=== PATIENT | female | born 1940 | race Caucasian/White ===

== ENCOUNTER 2019-12-25 09:55 | Emergency (ER) | payer MEDICARE, OTHER ==
--- NOTE | 2019-12-25 10:19 | EDM.PDOC ---
ED HPI GENERAL MEDICAL PROBLEM - General Stated Complaint: FEVER WEAKNESS Time Seen by Provider: 12/25/19 12:00 Source of Information: Reports: Half-Way Records History Limitations: Reports: Other (dementia) - History of Present Illness INITIAL COMMENTS - FREE TEXT/NARRATIVE: pt is a resident at an assisted living, has Hx of dementia, was brought here with concerns for fevre and c/o weakness, also to be tested for Covid, as she may have been exposed to it at her residence. pt has dementia she is alert here and appear comfortable but unable to provide any pertinent Hx information about her past medical hx or present illness. pt however dose folow simple comands and moves all extremities. pt info were obtained from staff and available medical records. - Related Data Allergies Allergy/AdvReac Type Severity Reaction Status Date / Time codeine Allergy Cannot Verified 12/25/19 13:10 Remember Sulfa (Sulfonamide Allergy Cannot Verified 12/25/19 13:10 Antibiotics) Remember Home Meds: Home Meds Acetaminophen [Tylenol] 650 mg PO Q4H PRN 12/25/19 [History] Aspirin [Halfprin] 81 mg PO DAILY 12/25/19 [History] Bisacodyl [Gentle Laxative] 10 mg RECTAL Q3D PRN 12/25/19 [History] Calcium Carbonate/Vitamin D3 [Calcium 500-Vit D3 200 Caplet] 1 tab PO BID 12/25/19 [History] Cholecalciferol (Vitamin D3) [Vitamin D3] 2,000 unit PO DAILY 12/25/19 [History] Donepezil HCl [Aricept] 10 mg PO DAILY 12/25/19 [History] Gabapentin [Neurontin] 900 mg PO TID 12/25/19 [History] Levothyroxine 75 mcg PO DAILY 12/25/19 [History] Loperamide [Imodium] 2 mg PO ASDIRECTED PRN 12/25/19 [History] Mag Hydrox/Aluminum Hyd/Simeth [Mylanta Maximum Strength Liq] 10 ml PO QID PRN 12/25/19 [History] Magnesium Hydroxide [Milk of Magnesia] 30 ml PO DAILY PRN 12/25/19 [History] Memantine HCl [Namenda] 5 mg PO DAILY 12/25/19 [History] Multivitamin 1 tab PO DAILY 12/25/19 [History] atorvaSTATin Calcium [Lipitor] 40 mg PO BEDTIME 12/25/19 [History] atorvaSTATin [Lipitor] 20 mg PO BEDTIME 12/25/19 [History] guaiFENesin [Robitussin] 10 ml PO Q4H PRN 12/25/19 [History] metFORMIN HCl [Metformin ER Gastric] 500 mg PO BIDMEALS 12/25/19 [History] ED ROS GENERAL - Review of Systems Review Of Systems: Unable To Obtain (dementia) Reason Not Obtained: dementia ED EXAM, GENERAL - Physical Exam Exam: See Below Exam Limited By: No Limitations General Appearance: Alert, No Apparent Distress, Other (pt is afebrile here and appear comfortable ) Eye Exam: Bilateral Eye: Normal Inspection Nose: Normal Inspection Throat/Mouth: Normal Inspection, Normal Oropharynx Head: Atraumatic, Normocephalic Neck: Normal Inspection, Supple Respiratory/Chest: No Respiratory Distress, Lungs Clear, Normal Breath Sounds Cardiovascular: Normal Peripheral Pulses, Regular Rate, Rhythm GI/Abdominal: Normal Bowel Sounds, Soft, Non-Tender Extremities: Normal Inspection, Normal Range of Motion Neurological: Alert, CN II-XII Intact. No: Abnormal Reflexes, Sensory/Motor Deficit Skin Exam: Warm Course - Vital Signs Text/Narrative:: labs results were reviewed. pt tested positive for Covid, pt is resting comfortable here, no signs of respiratory evolvement or systemic instability , vitals are wnl/stable with repeat check. at pt is medically stable for discharge back to her assisted living where she will be quarantined along with 5 other residents who tested as well positive for this infection. supportive care was otherwise recommended. Last Recorded V/S: Last Vital Signs Temp 36.8 C 12/25/19 09:55 Pulse 68 12/25/19 09:55 Resp 16 12/25/19 09:55 BP 144/68 H 12/25/19 09:55 Pulse Ox 98 12/25/19 09:55 - Orders/Labs/Meds Orders: Active Orders 24 hr Category Date Time Status Isolation [COMM] Routine Oth 12/25/19 10:43 Ordered Labs: Laboratory Tests 12/25/19 12/25/19 12/25/19 Range/Units 11:00 11:00 12:15 WBC 5.1 (4.5-12.0) X10-3/uL RBC 4.39 (3.23-5.20) x10(6)uL Hgb 12.3 (11.5-15.5) g/dL Hct 37.4 (30.0-51.3) % MCV 85.0 (80-96) fL MCH 28.1 (27.7-33.6) pg MCHC 33.0 (32.2-35.4) g/dL RDW 14.3 (11.5-15.5) % Plt Count 111 L (125-369) X10(3)uL Sodium 139 (135-145) mmol/L Potassium 3.8 (3.5-5.3) mmol/L Chloride 102 (100-110) mmol/L Carbon Dioxide 34 H (21-32) mmol/L BUN 19 H (7-18) mg/dL Creatinine 1.0 (0.55-1.02) mg/dL Est Cr Clr Drug Dosing TNP Estimated GFR (MDRD) 54 L (>60) BUN/Creatinine Ratio 19.0 (9-20) Glucose 141 H (80-116) mg/dL Calcium 8.5 L (8.6-10.2) mg/dL Total Bilirubin 0.5 (0.1-1.3) mg/dL AST 19 (5-25) IU/L ALT 22 (12-36) U/L Alkaline Phosphatase 69 (56-112) IU/L Total Protein 5.9 L (6.0-8.0) g/dL Albumin 2.9 L (3.2-4.6) g/dL Globulin 3.0 g/dL Albumin/Globulin Ratio 1.0 Urine Color Yellow (YELLOW) Urine Appearance Clear (CLEAR) Urine pH 7.0 H (5.0-6.5) Ur Specific Spray 1.010 (1.010-1.025) Urine Protein Negative (NEGATIVE) mg/dL Urine Glucose (UA) Normal (NORMAL) mg/dL Urine Ketones Negative (NEGATIVE) mg/dL Urine Occult Blood Negative (NEGATIVE) Urine Nitrite Negative (NEGATIVE) Urine Bilirubin Negative (NEGATIVE) Urine Urobilinogen Normal (NEGATIVE) mg/dL Ur Leukocyte Esterase Negative (NEGATIVE) Urine RBC 0-5 (0-5) Urine WBC 0-5 (0-5) Ur Squamous Epith Cells Rare (NS,R,O) Urine Bacteria Rare H (NS) SARS Virus RNA (PCR) (NEGATIVE) 12/25/19 Range/Units 13:30 WBC (4.5-12.0) X10-3/uL RBC (3.23-5.20) x10(6)uL Hgb (11.5-15.5) g/dL Hct (30.0-51.3) % MCV (80-96) fL MCH (27.7-33.6) pg MCHC (32.2-35.4) g/dL RDW (11.5-15.5) % Plt Count (125-369) X10(3)uL Sodium (135-145) mmol/L Potassium (3.5-5.3) mmol/L Chloride (100-110) mmol/L Carbon Dioxide (21-32) mmol/L BUN (7-18) mg/dL Creatinine (0.55-1.02) mg/dL Est Cr Clr Drug Dosing Estimated GFR (MDRD) (>60) BUN/Creatinine Ratio (9-20) Glucose (80-116) mg/dL Calcium (8.6-10.2) mg/dL Total Bilirubin (0.1-1.3) mg/dL AST (5-25) IU/L ALT (12-36) U/L Alkaline Phosphatase (56-112) IU/L Total Protein (6.0-8.0) g/dL Albumin (3.2-4.6) g/dL Globulin g/dL Albumin/Globulin Ratio Urine Color (YELLOW) Urine Appearance (CLEAR) Urine pH (5.0-6.5) Ur Specific Spray (1.010-1.025) Urine Protein (NEGATIVE) mg/dL Urine Glucose (UA) (NORMAL) mg/dL Urine Ketones (NEGATIVE) mg/dL Urine Occult Blood (NEGATIVE) Urine Nitrite (NEGATIVE) Urine Bilirubin (NEGATIVE) Urine Urobilinogen (NEGATIVE) mg/dL Ur Leukocyte Esterase (NEGATIVE) Urine RBC (0-5) Urine WBC (0-5) Ur Squamous Epith Cells (NS,R,O) Urine Bacteria (NS) SARS Virus RNA (PCR) Positive H (NEGATIVE) Departure - Departure Time of Disposition: 14:54 Disposition: Home, Self-Care 01 Clinical Impression: COVID-19 - Discharge Information Sepsis Event Note (ED) - Focused Exam Vital Signs: Vital Signs Temp Pulse Resp BP Pulse Ox 12/25/19 09:55 36.8 C 68 16 144/68 H 98 - My Orders Last 24 Hours: My Active Orders 12/25/19 10:43 Isolation [COMM] Routine - Assessment/Plan Last 24 Hours: My Active Orders 12/25/19 10:43 Isolation [COMM] Routine
[2019-12-25] MEDS ORDERED: Sodium Chloride 0.9% 10 ML Syringe FLUSH PRN (16:45)
== END 2019-12-25 17:35 | disposition home or self-care (01) ==
LOC: FB.ED 09:55
DX: U07.1 COVID-19 (principal); F03.90 Unspecified dementia, unspecified severity, without behavioral disturbance, psychotic disturbance, mood disturbance, and anxiety; Z79.82 Long term (current) use of aspirin; Z79.899 Other long term (current) drug therapy; Z79.84 Long term (current) use of oral hypoglycemic drugs; Z88.5 Allergy status to narcotic agent; Z88.2 Allergy status to sulfonamides
CPT/HCPCS: 36415; 80053; 81001; 85027; 87804; 99284; U0002; 99285

== ENCOUNTER 2021-06-28 13:24 | Emergency (ER) | payer MEDICARE, OTHER ==
[2021-06-28] MEDS ORDERED: Lidocaine 2% Viscous Solution 15 ML UD PO ONE (13:31)
== END 2021-06-28 14:10 | disposition home or self-care (01) ==
LOC: FB.ED 13:24
DX: S09.93XA Unspecified injury of face, initial encounter (principal); E78.00 Pure hypercholesterolemia, unspecified; I10 Essential (primary) hypertension; E11.9 Type 2 diabetes mellitus without complications; E20.9 Hypoparathyroidism, unspecified; Z88.5 Allergy status to narcotic agent; Z88.2 Allergy status to sulfonamides; Z79.82 Long term (current) use of aspirin; Z79.84 Long term (current) use of oral hypoglycemic drugs; Z79.899 Other long term (current) drug therapy; W22.8XXA Striking against or struck by other objects, initial encounter
CPT/HCPCS: 99283; A9270-GY

== ENCOUNTER → 2022-02-22 | Emergency (ER) | payer MEDICARE, OTHER ==
[2022-02-23 14:17] LABS: ESTIMATED GFR 57 mL/min (>60)
[2022-02-23 14:50] LABS: CORONAVIRUS COVID-19 NAA NEGATIVE (NEGATIVE)
[2022-02-23 14:51] LABS: STREP A BY PCR NOT DETECTED (NOT DETECT)
== END ==
LOC: FB.ED 09:38 → FB.EMPHLTH 09:38
DX: R13.10 Dysphagia, unspecified (principal); R77.0 Abnormality of albumin; R09.89 Other specified symptoms and signs involving the circulatory and respiratory systems; Z20.822 Contact with and (suspected) exposure to COVID-19
CPT/HCPCS: 36415; 71045; 80053; 83880; 84484; 85025; 86140; 87651-QW; 93005; 99284; U0002